=== PATIENT | female | born 1950 | race Caucasian/White ===

== ENCOUNTER 2021-03-14 08:37 | Inpatient (IN) | payer OTHER ==
[2021-03-14] VITALS (13 sets, daily range): BP systolic 80–152; BP diastolic 35–80
[~2021-03-14] VITALS: Ht 162.6 cm; Wt 98.8 kg
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
--- NOTE | ~2021-03-14 | HC ---
[facility] [place] [address] CONSULTATION Name: RAMONA AYALA Room #: 245-P ADM IN M.R.#: [id number] Admission: 03/14/21 Attend Phys: Brian Drummond MD Discharge: Date of : 50 Report #: [id number] THIS REPORT FOR: cc: Valdemar Coates MD, Christopher B. MD Khosla,Wallace Mason MD ~ DATE OF SERVICE: 03/17/2021 HISTORY OF PRESENT ILLNESS: This is a 70-year-old female patient, who is unable to provide any history at all. No family member is here. History is from the record and talking to the nurses. This patient apparently was in the rehab after admission at [facility]. She was found unresponsive with a very low blood sugar and agonal breathing. She was intubated and admitted. She is on fentanyl, but is not on any other sedation. The nurse tells me that she was given sedation vacation and she did not have any purposeful activity that time. REVIEW OF SYSTEMS: Positive for end-stage renal disease. She has a renal transplant, but has to go back on dialysis. She has respiratory failure. She has a pleural effusion. She had hypoglycemia. A question is whether the patient needs to be made comfort care or not. That is the relevant 14-point review of system, which was available. PAST MEDICAL HISTORY: Positive for kidney problem. FAMILY HISTORY: Unremarkable. SOCIAL HISTORY: She is in snf, but that is for a rehabilitation after her admission to [facility]. PHYSICAL EXAMINATION: The patient's examination is very limited. On my examination, the only response I get is that on painful stimuli, she opens her eyes. She does not move anything. She cannot follow any commands. Rest of the neurological examination is impossible. Blood pressure is stable now. Pulse is 97, last blood pressure was 116/74, temperature is 97.9. She is intubated. Records indicate that she may have atrial fibrillation. Her latest chest x-ray shows that she is also developing right pleural effusion. She is moderately built individual. Hearing and vision cannot be tested. LABORATORY DATA: Indicate somewhat decreased platelet count of 116. GFR is only 21. IMPRESSION: Encephalopathy because of numerous medical problems. Because of numerous medical problems and hypoglycemia and hypoxia she suffered, her prognosis does not look good. Family should consider palliative care not even if neurological function is there because of multisystem problems, but we will try to see how much neurological function is there. I will get an EEG done in [address] [address] CONSULTATION Name: RAMONA AYALA Room #: [facility] IN ..#: [id number] Admission: 03/14/21 Attend Phys: Brian Drummond MD Discharge: Date of : 50 Report #: [id number] this patient as a first test and then try to talk to the family. Thank you very much for this referral and if you have any questions, please feel free to contact me. By: [id number] [id number] Wallace Bryant MD /paul
--- NOTE | ~2021-03-14 | EEG ---
[facility] [place] [address] ELECTROENCEPHALOGRAM Name: RAMONA AYALA Room #: 245-P ADM IN M.R.#: [id number] Admission: 03/14/21 Attend Phys: Brian Drummond MD Discharge: Date of : 50 Report #: [id number] THIS REPORT FOR: //name// DATE OF SERVICE: 03/18/2021 This patient's EEG is being done to evaluate for encephalopathy. EEG was done by placing the electrode by standard 10-20 system of electrode placement. Both referential and sequential montages were used for recording. Background activity has a lot of muscle and electronic artifacts. It appeared very slow about 4-5 Hz and 30 microvolt. IMPRESSION: This is an EEG, which has a lot of artifacts. Therefore, no definite impression can be made, but EEG does appear to be showing findings consistent with significant amount of encephalopathy. Clinical correlation is recommended, but if further evaluation is desired, the patient should have a repeat EEG by giving her some paralyzing agents and without any sedation. By: 1144 1415 Wallace Bryant MD /nt
--- NOTE | 2021-03-14 08:37 | NUR ---
PLEASE SEE TRIAGE NOTE. THIS IS A RUNNING NOTE THIS RN REMAINING AT BEDSIDE WITH PT PT STATED TO BE FOUND DOWN UPON EMS ARRIVAL, UNKNOWN DOWNTTIME, PT HAS SKIN TEARS TO BLE, LUE WORSE THAN THE RIGHT, BLEEDING CONTROLLED, PT ALSO HAS VARIOUS STAGES OF BRUISING TO BLE. PT IS UNRESPONSIVE AND BAGGED UPON ARRIVAL. RT IN ROUTE FOR INTUBATION. PT BG 20 UPON ARRIVAL, AFTER AN AMP OF D50 PT BG 80. PT INTUBATED WITHOUT COMPLICATIONS PLEASE REFER TO AIRWAY FOR PLACEMENT MARKING, OG PLACED WITHOUT DIFFICULTY AGAIN REFER TO GI INTERVENTION FOR PLACEMENT, ET TUBE AND OG CONFIRMED VIA XRAY, NO ISAAC PLACED AT THIS TIME D/T CHRONIC ESRD ED PROVIDER VERBALIZED OK, PT EXTREMITIES COOL TO THE TOUCH AND HARD TO PICKUP O2 SATURATION WHEN READING ON A GOOD WAVEFORM PT IS IN THE 90'S, PT
--- NOTE | 2021-03-14 09:10 | NUR ---
NARCAN .4MG- 08:43 D50 1 AMP- 08:43 LR 1 LITER- 08:49 ETOMIDATE 12ML -08:51 SUCCS 10 ML- 08:52
[2021-03-14 09:24] LABS: ABSOLUTE NEUTROPHILS 4.4 thou/uL (1.4-8.2); BASOPHILS 0.8 % (0.0-2.0); EOSINOPHILS 0.3 % (0.0-3.0); HEMOGLOBIN 8.7 gm/dL (12.0-15.0); LYMPHOCYTES 10.9 % (24.0-44.0); MCH 28.8 pg (26.0-34.0); MCHC 32.4 g/dL (28.0-37.0); MCV 88.8 fL (80.0-100.0); MONOCYTES 3.9 % (1.0-8.0); PLATELET COUNT 94 thou/uL (150-400); POLYS 84.1 % (36.0-66.0); RBC 3.03 mil/uL (4.20-5.00); RDW 19.9 % (10.5-14.5); WBC 5.2 thou/uL (4.0-11.0)
[2021-03-14 09:33] LABS: BE(vivo) 3.8 mmol/L (-2 to +3); HCO3 27.8 mmol/L (22.0-26.0); PCO2 39.4 mmHg (35.0-45.0); pH 7.466 (7.360-7.450); sO2 69.2 % (92.0-98.0)
[2021-03-14 09:33] LABS: ANION GAP 4 mmol/L (7-16); BUN 45 mg/dL (7-18); CALCIUM 7.1 mg/dL (8.5-10.1); CHLORIDE 99 mmol/L (98-107); CO2 30 mmol/L (21-32); CREATININE 2.7 mg/dL (0.6-1.0); GLUCOSE 118 mg/dL (74-106); POTASSIUM 4.9 mmol/L (3.5-5.1); SODIUM 133 mmol/L (136-145)
[2021-03-14 09:43] LABS: ALBUMIN 1.6 g/dL (3.4-5.0); LIPASE 28 U/L (73-393); SGOT 32 U/L (15-37); SGPT 19 U/L (14-59); TOTAL BILIRUBIN 0.7 mg/dL (0.2-1.0); TOTAL PROTEIN 3.9 g/dL (6.4-8.2); TROPONIN-I <0.06 ng/mL (<0.06)
--- NOTE | 2021-03-14 10:50 | NUR ---
1050- THIS RN AND RT TOOK PT TO CT AT THIS TIME PT BACK TO ED ROOM 06 AT 1151- NO ACUTE CHANGES NOTED. THIS RN TO REMAINS WITH PT
--- NOTE | 2021-03-14 11:09 | EKG ---
[place] [address] [address] [facility] [place] [address] ELECTROCARDIOGRAM REPORT Name: RAMONA AYALA Room #: REG [facility]#: [id number] Admission: 03/14/21 Attend Phys: Discharge: Date of : 50 Report #: [id number] [facility] ED Test Date: 2021-03-14 Test Time: 08:48:41 Pat Name: RAMONA AYALA Department: Room: Gender: F Dental Laboratory Assistant: ADRIAN : 1950 Requested By: Yves Saenz Order Number: [id number] MD: Behzad Junior Measurements Intervals [place] Rate: 83 P: TX: QRS: -25 QRSD: 114 T: -8 QT: 409 QTc: 481 Interpretive Statements Atrial fibrillation Borderline intraventricular conduction delay Abnormal R-wave progression, early transition Borderline T abnormalities, diffuse leads Baseline wander in lead(s) V3 No previous ECG available for comparison Electronically Signed On 03-14-2021 11:08:52 CDT by Behzad Junior [email or web address] <ELECTRONICALLY SIGNED> By: Behzad Junior MD, MERGED WITH [facility] 03/14/21 1108 D: 07/847 7 Behzad Junior MD, FACC /EPI
--- NOTE | 2021-03-14 12:00 | NUR ---
IR PLACED TRIPLE LUMEN CENTRAL LINE TO LEFT JUGULAR. PT IV IN LAC INFILTRATED AND WAS PULLED, CATHETER INTACT. INITIATING PRESSOR, WILL TITRATE PER PT CONDITION AND VS. WILL CONTINUE TO CLOSELY MONITOR AT BEDSIDE
--- NOTE | 2021-03-14 12:20 | NUR ---
PT FAMILY AT BEDSIDE AT THIS TIME. ED PROVIDER HAS GONE OVER PT RESULTS AND STATUS OF CONDITION WITH PT AND SON. PT CONTINUES TO REMAIN HYPOTENSIVE DESPITE LEVOPHED BEING MAXED AT 30MCG/MIN. PT DOES NOT APPEAR TO BE IN ANY DISTRESS. PT COVERED WITH SOL HUGGER AND WARM BLANKETS. THIS RN TO CONTINUE TO STAY AT BEDSIDE AND CLOSELY MONITOR
--- NOTE | 2021-03-14 12:20 | NUR ---
PT PROPOFOL AND FENTANYL DRIP WERE STOPPED AT THIS TIME D/T EXTREME HYPOTENSION. PT HAS SLIGHT EYE MOVEMENT BUT NO APPARENT DISTRESS NOTED. WILL CONTINUE TO CLOSELY MONITOR AT BEDSIDE.
--- NOTE | 2021-03-14 12:25 | NUR ---
HOSPITALIST AT BEDSIDE SPEAKING WITH PT AND SON. PT BP WNL LEVOPHED TITRATED DOWN TO 25MCG/MIN
--- NOTE | 2021-03-14 13:00 | NUR ---
NO ACUTE CHANGES NOTED, WILL CONTINUE TO CLOSELY MONITOR. ALL QUESTIONS HAVE BEEN ANSWERED AND THIS TIME FOR FAMILY.
[2021-03-14 13:03] LABS: BE(vivo) -1.9 mmol/L (-2 to +3); HCO3 22.4 mmol/L (22.0-26.0); PO2 52.6 mmHg (80.0-100.0); pH 7.411 (7.360-7.450); sO2 87.8 % (92.0-98.0)
--- NOTE | 2021-03-14 14:35 | NUR ---
THORACENTESIS CONSENT WAS SIGNED BY SPOUSE, HOWEVER CONS OUTWEIGH THE PROS AT THIS TIME AND IT DOES NOT APPEAR THAT THERE IS A SIGNIFICANT AMOUNT OF FLUID FOR PROCEDURE. PT FAMILY UPDATED ON THIS, VERBALIZED UNDERSTANDING AT THIS TIME
--- NOTE | 2021-03-14 15:08 | NUR ---
PT SPOUSE AT BEDSIDE NOTES PT HAS NOT HAD ANY URINE OUTPUT IN X3 WEEKS SINCE RESEARCH "KILLED HER KIDNEY" PT SPOUSE UNSURE OF LAST DIALYSIS TX. ATTEMPTED TO CALL [facility] AND CANNOT GET THROUGH TO STAFF. WILL UPDATE DR. NGUYEN ON ORDERS TO PLACE ISAAC OR NOT
[2021-03-14 16:01] LABS: INR 1.44; PROTIME 15.4 Seconds (10.5-12.1)
--- NOTE | 2021-03-14 16:06 | NUR ---
NO ACUTE CHANGES, AT BEDSIDE, STILL AWAITING ROOM IN ICU, WILL CONTINUE TO CLOSELY MONITOR
[2021-03-14 16:13] LABS: APTT 102.1 Seconds (24.5-32.8)
--- NOTE | 2021-03-14 17:08 | NUR ---
NO ACUTE CHANGES NOTED, PT RESTING COMFORTABLY WITH NO DISTRESS NOTED, VSS ON VENT, PT OTHER SON AT BEDSIDE AND UPDATED AT THIS TIME. WILL CONTINUE TO CLOSELY MONITOR
--- NOTE | 2021-03-14 17:11 | NUR ---
70-year-old female with an extensive past medical history who presents to the emergency department by EMS after being found unresponsive with agonal respirations at [facility]. Upon arrival in the ED, EMS bagging patient with no purposeful movement. Patient was reportedly found on the floor by staff in the morning. Glucose undetectable by EMS, patient only has a right tibial IO is access is currently getting D10. After talking with patient's , states that she has a history of a kidney transplant 8 years ago however her kidney transplant failed earlier this year and patient is now on dialysis with a tunneled HD line. Per Jozef at [facility] the patient had been with them for less than 10 days and spouse has had great difficulty with the new restrictions on visiting. Jozef states the patient was at [facility] for one month prior to admitting to [facility]. Spouse has been trying to locate her closer to [place] and [facility] as of yet has been able to find an accepting facility given her medical complexity. She is also a patient of Dr. Crane and currently receive dialysis at [facility]. Per ED patient admitted to ICU status on a vent. Spouse is Juan Alberto Lambert [phone] or [phone]. CM will follow for discharge needs upon medical evaluation and plan of care has been established. CM will follow for discharge needs upon medical evaluation and plan of care has been established.
--- NOTE | 2021-03-14 17:20 | NUR ---
REPORT GIVEN TO BRANDEN BRADLEY AT THIS TIME. LOOKING FOR HOSPITAL BED TO AND WILL THEN TRANSPORT PT
--- NOTE | 2021-03-14 17:55 | NUR ---
PT TURNED AND CLEANED AT THIS TIME WITH X4 RN'S. SOFT BROWN STOOL NOTED, PT HAS X2 WOUND BANDAGES NOTED.
--- NOTE | 2021-03-14 17:57 | NUR ---
PROPOFOL TITRATED TO 10MCG/MIN/KG AND FENTANYL TITRATED TO 75MCG/HR AT THIS TIME PER DR. CÁRDENAS FOR BRONCHOSCOPY. RT AT BEDSIDE.
[2021-03-14 18:02] LABS: URINE BILIRUBIN 2+ (Negative); URINE BLOOD 1+ (Negative); URINE CLARITY SL CLOUDY; URINE COLOR YELLOW; URINE GLUCOSE-RANDOM* NEGATIVE (Negative); URINE KETONES TRACE (Negative); URINE NITRITE-REFLEX NEGATIVE (Negative); URINE PROTEIN (DIPSTICK) 2+ (Negative); URINE UROBILINOGEN 0.2 E.U./dl (0.2-1.0)
[2021-03-14 18:31] LABS: ICTOTEST (BILI CONFIRMATORY) Positive (Negative); URINE LEUKOCYTES-REFLEX 1+ (Negative)
[2021-03-14 18:35] LABS: SQUAMOUS 0-3 Few /LPF (0-3); URINE RBC 3-10 Few /HPF (NONE SEEN); URINE WBC-REFLEX >25 Many /HPF (0-5)
[2021-03-14 18:36] LABS: BACTERIA-REFLEX >30 Many /HPF (None Seen)
--- NOTE | 2021-03-14 18:37 | NUR ---
THIS RN AND RT TAKING PT TO ICU AT THIS TIME. PT IS STABLE FOR TRANSPORT.
--- NOTE | 2021-03-14 19:36 | NUR ---
PATIENT ARRIVES AT 1836 TO ICU WITH RT AND IRS AGENT. PATIENT SETTLED IN ROOM. PASSING ON CARE TO PATCHER WOOD WELDER RN.
[2021-03-15] VITALS (23 sets, daily range): BP systolic 80–170; BP diastolic 39–84
[2021-03-15] MEDS ORDERED: PROGRAF0.5 MG PO (01:21)
[2021-03-15] MEDS ORDERED: PERCOCET 5-3251 EACH PO (01:23)
[2021-03-15] MEDS ORDERED: PREDNISONE 10 M10 MG PO (01:26)
[2021-03-15] MEDS ORDERED: TORSEMIDE20 MG PO (01:27)
[2021-03-15] MEDS ORDERED: PROTONIX40 M2 PO (01:27)
[2021-03-15] MEDS ORDERED: TRICOR48 MG PO (01:28)
[2021-03-15] MEDS ORDERED: CARVEDILOL25 MG PO (01:29)
[2021-03-15] MEDS ORDERED: CALCITRIOL0.5 MCG PO (01:29)
[2021-03-15] MEDS ORDERED: COZAAR 25 MG TA25 M1 PO (01:31)
[2021-03-15] MEDS ORDERED: FOLIC ACID1 MG PO (01:32)
[2021-03-15] MEDS ORDERED: HEPARIN SO5000 UNIT/ SUBQ (01:34)
[2021-03-15] MEDS ORDERED: MYFORTIC360 MG PO (01:35)
[2021-03-15] MEDS ORDERED: LEVEMIR100 UNIT/2 SUBQ (01:36)
[2021-03-15] MEDS ORDERED: NORVASC5 MG PO (01:37)
[2021-03-15] MEDS ORDERED: VITAMIN C500 M2 PO (01:38)
[2021-03-15] MEDS ORDERED: ASA81BEC PO (01:38)
[2021-03-15] MEDS ORDERED: MIRALAX119 GM PO (01:39)
[2021-03-15] MEDS ORDERED: NORCO5 PO (01:40)
[2021-03-15] MEDS ORDERED: NEPHRO-VITE TA0.8 MG PO (01:40)
[2021-03-15 05:11] LABS: ABSOLUTE NEUTROPHILS 6.9 thou/uL (1.4-8.2); BASOPHILS 0.1 % (0.0-2.0); EOSINOPHILS 0.1 % (0.0-3.0); HEMATOCRIT 23.2 % (37.0-47.0); HEMOGLOBIN 7.8 gm/dL (12.0-15.0); LYMPHOCYTES 4.7 % (24.0-44.0); MCH 29.2 pg (26.0-34.0); MCHC 33.4 g/dL (28.0-37.0); MCV 87.4 fL (80.0-100.0); MONOCYTES 1.3 % (1.0-8.0); PLATELET COUNT 93 thou/uL (150-400); POLYS 93.8 % (36.0-66.0); RBC 2.66 mil/uL (4.20-5.00); RDW 19.6 % (10.5-14.5); WBC 7.4 thou/uL (4.0-11.0)
--- NOTE | 2021-03-15 05:22 | NUR ---
PT IS 7O Y/O FEMALE ADMITTED FROM ED WITH RESP FAILURE S/P INTUBATION.PT ON PROPOFOL AND FENTANYL FOR VENT MANAGEMENT.PT NONRESPONSIVE.HAS EYES OPEN,PUPILS REACTIVE TO LIGHT.NO PURPOSEFUL MVTS,AFIB ON OIL CHANGE TECHNICIAN.ON LEVOPHED ,TITRATION PER PARAMETERE.LUNGS SOUND CLEAR ON UPPER LOBES AND COARSE LOWER LOBES BILATERALLY.HAS ISAAC CATHETER,ANURIC 22 ESRD, ON HD.EDEMATOUS TO EXTREMITIES X4.HAS BLISTERS AND SKIN TEARS THAT WEEPS MODERATELY.NOTED WOUNDS TO LEFT HIP AND LOWER BACK PLUS ANAL AREA,SEE PICTURES IN THE CHART.IONA WITH WEEPING SKIN TEARS.WOUND CARE CONSULTED.LABS REVIEWED.ART LINE PLACED BY DR RUIZ AND .DR NGUYEN ROUNDED ON PT.DR BORGES NOTIFIED OF THE CONSULT AND WAS OKAY WITH PT UNDERGOING CT SCAN W/CONTRAST.ADMISSION ASSESSMENT COMPLETED .MED RECONCILLED PER CORRECTION RECORDS. CALLED AND UPDATED WITH PT STATUS.NO SIGNIFICANT CHANGES NOTED.WILL CONT WITH POC.
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
--- NOTE | 2021-03-15 10:27 | NUR ---
If pt not extubated in 24 hr, recommend start nepro at 35ml/hr. Defer any fluid needs to renal.
[2021-03-15 11:24] LABS: ALBUMIN 1.3 g/dL (3.4-5.0); CALCIUM 6.8 mg/dL (8.5-10.1); CREATININE 2.8 mg/dL (0.6-1.0); PHOSPHORUS 4.4 mg/dL (2.5-4.9)
--- NOTE | 2021-03-15 12:45 | NUR ---
WOUND CARE CONSULT; ROUNDING WITH DR TAHIR RADFORD AND BETTIE ATKINSON NP. THE PATIENT GONZALEZ S 3 SKIN TEARS TO THE LEFT UPPER EXT IN A CLUSTER. PRESSURE INJURIES TO THE SACRUM/COCCYX/KARI-RECTAL. -APPLIED XEROFORM GAUZE, COVERED WITH A BORDER FOAM TO THE SKIN TEARS OF THE UPPER EXT. -APPLIED A SACRAL FOAM TO THE COCCYX/SACRUM/KARI-RECTUM.
--- NOTE | 2021-03-15 13:08 | NUR ---
1308-PATIENTS SPOUSE, BILL, CALLED. NURSE UPDATED HIM ON PATIENT STATUS AND PLAN OF CARE. ALL QUESTIONS ANSWERED.
--- NOTE | 2021-03-15 15:06 | NUR ---
FAXED CLINICAL UPDATES AND NEGATIVE COVID RESULT (03/14/21) TO [facility]. WILL CONFIRM WITH ROGER/LIAISON THAT SHE RECEIVED. [facility] P [phone]; FAX [phone]
--- NOTE | 2021-03-15 17:05 | NUR ---
Patient not progressing towards plan of care as evidenced by continued need for ventilation, levophed, and sedation. Patient blood pressure labile, SBP 70's-180's with minimal levophed titration. Levophed was off for a bit today, then wound care rounded to assess patient wounds and layed her down, SBP decreased into the 70's, levophed restarted. Plan of care is to continue to monitor need for ventilation, pressors, and hemodynamics.
[2021-03-15 18:19] LABS: CALCIUM 7.1 mg/dL (8.5-10.1)
[2021-03-15 18:21] LABS: CREATININE 1.2 mg/dL (0.6-1.0); POTASSIUM 3.4 mmol/L (3.5-5.1)
--- NOTE | 2021-03-15 22:01 | NUR ---
This RN spoke to Juan Alberto, patients at 1945. Discussed patient status and plan of care. Questions answered.
[2021-03-16] VITALS (26 sets, daily range): BP systolic 95–145; BP diastolic 34–76
[2021-03-16 06:07] LABS: HEMOGLOBIN 6.9 gm/dL (12.0-15.0)
[2021-03-16 06:12] LABS: ABSOLUTE NEUTROPHILS 3.1 thou/uL (1.4-8.2); BASOPHILS 0.2 % (0.0-2.0); HEMATOCRIT 20.8 % (37.0-47.0); LYMPHOCYTES 9.9 % (24.0-44.0); MCH 29.3 pg (26.0-34.0); MCHC 33.2 g/dL (28.0-37.0); MCV 88.1 fL (80.0-100.0); MONOCYTES 3.7 % (1.0-8.0); PLATELET COUNT 100 thou/uL (150-400); POLYS 86.2 % (36.0-66.0); RBC 2.36 mil/uL (4.20-5.00); RDW 19.9 % (10.5-14.5); WBC 3.6 thou/uL (4.0-11.0)
--- NOTE | 2021-03-16 06:34 | NUR ---
This RN spoke to ASHLEY Monroy regarding patients hemoglobin of 6.9. No new orders received. Will continue to monitor.
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
--- NOTE | 2021-03-16 16:31 | NUR ---
0900HRS - PT'S AT BEDSIDE. WAS UPDATED AND INFORMED OF PT'S STATUS AND CONDITION.
[2021-03-16 18:08] LABS: POTASSIUM 3.7 mmol/L (3.5-5.1)
[2021-03-16 18:13] LABS: CREATININE 2.2 mg/dL (0.6-1.0)
[2021-03-17 01:33] VITALS: BP 137/47
[2021-03-17 04:15] LABS: HEMATOCRIT 25.1 % (37.0-47.0); HEMOGLOBIN 8.5 gm/dL (12.0-15.0); MCH 29.4 pg (26.0-34.0); MCHC 33.7 g/dL (28.0-37.0); MCV 87.4 fL (80.0-100.0); RBC 2.87 mil/uL (4.20-5.00); RDW 18.7 % (10.5-14.5); WBC 5.5 thou/uL (4.0-11.0)
[2021-03-17 04:27] LABS: CALCIUM 7.2 mg/dL (8.5-10.1); CREATININE 2.3 mg/dL (0.6-1.0); MAGNESIUM 1.5 mg/dL (1.8-2.4); POTASSIUM 3.6 mmol/L (3.5-5.1)
--- NOTE | 2021-03-17 05:19 | NUR ---
pt withdraws to pain and closes mouth to oral care, eyes remain slightly open, do not close to noxious stimuli, fentanyl gtt decreased, pt hr increased with increase in sbp up to 165. tolerating tf, weeping, edematous, pale.
[2021-03-17 05:34] VITALS: BP 126/52
[2021-03-17 09:34] VITALS: BP 113/56
--- NOTE | 2021-03-17 12:29 | NUR ---
1200HRS - DIALYSIS (HD) COMPLETED
[2021-03-17 13:33] VITALS: BP 116/74
--- NOTE | 2021-03-17 16:27 | NUR ---
Discussed during am unite rounds and los. Cont. to wear face mask and shield during rounds. She on vent, tube feed for nutritional support. Wean trials. Will cont. following as needed for dc needs.
[2021-03-17 17:33] VITALS: BP 126/82
--- NOTE | 2021-03-17 18:21 | NUR ---
1820HRS - BMX1 LARGE,
--- NOTE | 2021-03-17 19:57 | NUR ---
0945HRS - PT'S AT BEDSIDE.
[2021-03-18 04:19] LABS: HEMATOCRIT 27.7 % (37.0-47.0); HEMOGLOBIN 9.3 gm/dL (12.0-15.0); MCH 29.4 pg (26.0-34.0); MCHC 33.6 g/dL (28.0-37.0); MCV 87.4 fL (80.0-100.0); RBC 3.17 mil/uL (4.20-5.00); RDW 19.2 % (10.5-14.5); WBC 7.1 thou/uL (4.0-11.0)
[2021-03-18 04:36] LABS: CALCIUM 7.2 mg/dL (8.5-10.1); CREATININE 1.8 mg/dL (0.6-1.0); MAGNESIUM 1.6 mg/dL (1.8-2.4); POTASSIUM 3.4 mmol/L (3.5-5.1)
[2021-03-18 05:07] LABS: HEPATITIS B SURFACE AG Negative (Negative)
[2021-03-18 13:27] LABS: BE(vivo) 1.6 mmol/L (-2 to +3); HCO3 24.7 mmol/L (22.0-26.0); PCO2 33.2 mmHg (35.0-45.0); pH 7.489 (7.360-7.450); sO2 97.5 % (92.0-98.0)
--- NOTE | 2021-03-18 15:16 | NUR ---
PT INTUBATED AND SEDATED. GCS-3, MTN AWARE OF THE PT. VENT SETTINGS TITRATED BY RT. CT HEAD TODAY, EEG AT BEDSIDE. PLAN FOR HD TOMORROW. MAGNESSIUM AND POTASSIUM REPLACED PER [facility]. PT AFEBRILE, OLIGURIC (PROVIDERS AWARE), TOLERATING TUBE FEED, FMS IN PLACE WITH LIQUID STOOL. PT AND AT BEDSIDE HAVE BEEN THOUROUGHLY UPDATED AND EDUCATED ON PT CONDITION AND POC. PT NOT PROGRESSING TOWARDS POC.
[2021-03-18 21:07] VITALS: BP 138/78
[2021-03-19] VITALS (10 sets, daily range): BP systolic 123–172; BP diastolic 49–90
[2021-03-19 05:49] LABS: HEMATOCRIT 26.6 % (37.0-47.0); HEMOGLOBIN 8.9 gm/dL (12.0-15.0); MCH 29.1 pg (26.0-34.0); MCHC 33.3 g/dL (28.0-37.0); MCV 87.4 fL (80.0-100.0); RBC 3.04 mil/uL (4.20-5.00); RDW 19.3 % (10.5-14.5); WBC 6.3 thou/uL (4.0-11.0)
--- NOTE | 2021-03-19 06:00 | NUR ---
REMAINS INTUBATED AND SEDATED WITH FENTANYL GTT FOLLOWS NO COMMANDS REMAINS IN AFIB AND A DNR. 80 CC UO THIS SHIFT. AND 500 CC FROM FMS. NOT PROGRESSING TOWARD GOALS.
[2021-03-19 06:40] LABS: CALCIUM 7.3 mg/dL (8.5-10.1); CREATININE 2.1 mg/dL (0.6-1.0); MAGNESIUM 1.9 mg/dL (1.8-2.4); POTASSIUM 3.5 mmol/L (3.5-5.1)
[2021-03-19 09:12] LABS: BE(vivo) -0.3 mmol/L (-2 to +3); HCO3 22.8 mmol/L (22.0-26.0); pH 7.471 (7.360-7.450); sO2 95.8 % (92.0-98.0)
--- NOTE | 2021-03-19 15:55 | NUR ---
PT INTUBATED AND SEDATED. FMS IN PLACE WITH LIQUID STOOL. PT AFEBRILE, OLIGURIC(PROVIDER AWARE), TOLERATING TUBE FEEDING. PLAN IS TO DO A TERMINAL WEAN FROM THE VENTILATOR TODAY. FAMILY HAS BEEN EDUCATED BY RN AND PROVIDERS, IS AT BEDSIDE. PT NOT PROGRESSING TOWARDS POC. RIGHT RADIAL ART LINE DC'D. PT AND FAMILY HAVE BEEN THOUROUGHLY UPDATED AND EDUCATED ON PT CONDITION AND POC. PT NOT PROGRESSING TOWARDS POC.
[2021-03-20] VITALS (12 sets, daily range): BP systolic 100–137; BP diastolic 49–68
--- NOTE | 2021-03-20 06:00 | NUR ---
PT REMAINS ON COMFORT CARE NO OXYGEN O2 SAT 60 TO 70 SBP 100/60 REMAINS IN AFIB. BATHED WILL BE IN THIS AM. HE STATES SHE IS SO STRONG SHE WILL BE HERE ANOTHER 3 OR 4 DAYS. WILL CONT TO MONITOR.
--- NOTE | 2021-03-20 08:02 | HC ---
[facility] [place] [address] CONSULTATION Name: RAMONA AYALA Room #: 245-P ADM IN M.R.#: [id number] Admission: 03/14/21 Attend Phys: Brian Drummond MD Discharge: Date of : 50 Report #: [id number] THIS REPORT FOR: cc: Valdemar Coates MD, Christopher B. MD Althoff, Jeffrey R. MD ~ DATE OF SERVICE: 03/15/2021 CHIEF COMPLAINT: Multiple pressure ulcerations. HISTORY OF PRESENT ILLNESS: This is a 70-year-old female patient who is admitted to the hospital in the last 24 hours. She has a history of type 2 diabetes mellitus with a failed kidney transplant and end-stage renal disease. She is currently in ICU and intubated. She had been recently at [facility] for a "liver infection" and then was in rehab and became unresponsive, apparently found on the floor with agonal breathing, blood glucoses in the low 20s, downtime is unknown. She is intubated in ICU receiving critical care intervention. I have been asked to see her with regard to wound care. The patient can provide no information about herself. CURRENT MEDICATIONS: Include Prograf, Percocet, prednisone, torsemide, Protonix, TriCor, calcitriol, Coreg, Cozaar, Myfortic, Norvasc, Levemir, vitamin C, aspirin, MiraLax, and hydrocodone. ALLERGIES: CODEINE. PAST MEDICAL HISTORY: Type 2 diabetes mellitus, anemia, previous , hepatitis C, left knee surgery, renal insufficiency, hypertension, previous hysterectomy, pulmonary edema, renal failure, and hypothyroidism. SOCIAL HISTORY: Negative for tobacco use. FAMILY HISTORY: Unknown. REVIEW OF SYSTEMS: Unobtainable due to the patient's unresponsive state. PHYSICAL EXAMINATION: VITAL SIGNS: Include temperature 36.8, pulse 118, respiratory rate of 19, and blood pressure 100/45. GENERAL: This is a chronically ill-appearing female patient who is not responsive, on a respirator. HEENT: Head is normocephalic. Nose and throat demonstrate oral intubation. NECK: Supple. LUNGS: Diminished. HEART: Irregular. ABDOMEN: Soft. [facility] [address] [place] [address] CONSULTATION Name: RAMONA AYALA Room #: 245-P [facility] IN ..#: [id number] Admission: 03/14/21 Attend Phys: Brian Drummond MD Discharge: Date of : 50 Report #: [id number] SKIN: Examination of the skin in the lower extremities demonstrate what appears to be a deep tissue injury to her left heel. She has a stage 3 pressure ulceration to the coccyx x2 and a stage 3 pressure ulceration to the low back. Both areas have a mixed granulation, fibrin are relatively superficial. She has multiple skin tears to the left upper arm. Additionally, she has an unstageable pressure ulceration to the left hip covered with moderate fibrin and a little bit of eschar. LABORATORY DATA: Include sodium 130, potassium 5.0, chloride 99, CO2 22, BUN 45, creatinine 2.8, glucose 250. Albumin is 1.3. INR is 1.4. White blood cell count 7.4 with a hemoglobin of 7.8. CLINICAL IMPRESSION: 1. Respiratory failure requiring mechanical ventilation. 2. End-stage renal disease, on dialysis. 3. History of hypoglycemia. 4. Recent decompensation having been found down with hypoglycemia. 5. Deep tissue injury to the left heel. 6. Stage 3 pressure ulceration x2 to the sacrococcygeal region. 7. Stage 3 pressure ulcer in the low back. 8. Unstageable pressure ulcer in the left hip. 9. Skin tears to the left upper arm. 10. Diabetes mellitus. RECOMMENDATIONS: At this point in time, the patient will be placed on low air loss mattress with q. 2 hour turning and repositioning. She will need nutritional support when appropriate. Obviously, aggressive management of her underlying medical issues. Recommend Xeroform and Kerlix to the skin tears to the left upper arm, Betadine paint "to the left heel", PRAFO boots at all times. We will pack the sacral ulcer with Aquacel Ag, covered with a bordered foam to be changed daily. Same treatment for the coccyx pressure ulcer. We recommend bordered foam to be changed daily to the T-spine pressure ulceration and bordered foam to the left hip. I appreciate being asked to see her in consultation. <ELECTRONICALLY SIGNED> By: Mohsen Marroquin MD 03/20/2102 58 Mohsen Marroquin MD /nt
--- NOTE | 2021-03-20 10:02 | NUR ---
Chart review. Changed to comfort care. coming in today. will cont following as needed for support.
--- NOTE | 2021-03-20 14:38 | NUR ---
PATIENT'S TIME OF IS 1417 TODAY. PRONOUNCED BY TWO NURSES GIVEN ORDER BY . BILL AT BEDSIDE WHEN PATIENT WAS ACTIVELY DYING.PT DID NOT HAVE BELONGINGS. ALL CONSULTS WERE NOTIFIED.
== END 2021-03-20 14:17 | DRG 870 ==
LOC: ER 08:37 → EROBS 12:26 → ICU 12:26
PROVIDERS: Internal Medicine Nephrology; Pediatrics; Psychiatry & Neurology Neuromuscular Medicine; Student in an Organized Health Care Education/Training Program; ADMIT Internal Medicine; ATTEND Internal Medicine
PROC: 0BH17EZ Insertion of Endotracheal Airway into Trachea, Via Natural or Artificial Opening (ICD-10-PCS; principal; 2021-03-14)
PROC: 5A1955Z Respiratory Ventilation, Greater than 96 Consecutive Hours (ICD-10-PCS; principal; 2021-03-14)
PROC: 02HV33Z Insertion of Infusion Device into Superior Vena Cava, Percutaneous Approach (ICD-10-PCS; 2021-03-14)
PROC: B548ZZA Ultrasonography of Superior Vena Cava, Guidance (ICD-10-PCS; 2021-03-14)
PROC: 4A133B1 Monitoring of Arterial Pressure, Peripheral, Percutaneous Approach (ICD-10-PCS; 2021-03-14)
PROC: 4A133J1 Monitoring of Arterial Pulse, Peripheral, Percutaneous Approach (ICD-10-PCS; 2021-03-14)
PROC: 03HY32Z Insertion of Monitoring Device into Upper Artery, Percutaneous Approach (ICD-10-PCS; 2021-03-14)
PROC: 0B9J8ZX Drainage of Left Lower Lung Lobe, Via Natural or Artificial Opening Endoscopic, Diagnostic (ICD-10-PCS; 2021-03-15)
PROC: 5A1D70Z Performance of Urinary Filtration, Intermittent, Less than 6 Hours Per Day (ICD-10-PCS; 2021-03-15)
PROC: 30233N1 Transfusion of Nonautologous Red Blood Cells into Peripheral Vein, Percutaneous Approach (ICD-10-PCS; 2021-03-16)
PROC: 5A1D70Z Performance of Urinary Filtration, Intermittent, Less than 6 Hours Per Day (ICD-10-PCS; 2021-03-17)
PROC: 5A1D70Z Performance of Urinary Filtration, Intermittent, Less than 6 Hours Per Day (ICD-10-PCS; 2021-03-20)
DX: A41.9 Sepsis, unspecified organism (principal); L89.153 Pressure ulcer of sacral region, stage 3; L89.103 Pressure ulcer of unspecified part of back, stage 3; J69.0 Pneumonitis due to inhalation of food and vomit; J96.01 Acute respiratory failure with hypoxia; N18.6 End stage renal disease; E43 Unspecified severe protein-calorie malnutrition; R65.21 Severe sepsis with septic shock; K75.0 Abscess of liver; I12.0 Hypertensive chronic kidney disease with stage 5 chronic kidney disease or end stage renal disease; T86.12 Kidney transplant failure; G93.40 Encephalopathy, unspecified; J90 Pleural effusion, not elsewhere classified; N17.9 Acute kidney failure, unspecified; E03.9 Hypothyroidism, unspecified; E11.22 Type 2 diabetes mellitus with diabetic chronic kidney disease; L89.626 Pressure-induced deep tissue damage of left heel; L89.220 Pressure ulcer of left hip, unstageable; S41.112A Laceration without foreign body of left upper arm, initial encounter; W19.XXXA Unspecified fall, initial encounter; K21.9 Gastro-esophageal reflux disease without esophagitis; D69.6 Thrombocytopenia, unspecified; R53.81 Other malaise; Y83.8 Other surgical procedures as the cause of abnormal reaction of the patient, or of later complication, without mention of misadventure at the time of the procedure; I51.3 Intracardiac thrombosis, not elsewhere classified; E11.649 Type 2 diabetes mellitus with hypoglycemia without coma; D63.8 Anemia in other chronic diseases classified elsewhere; Z51.5 Encounter for palliative care; Z98.891 History of uterine scar from previous surgery; Z90.710 Acquired absence of both cervix and uterus; Y93.89 Activity, other specified; Y92.89 Other specified places as the place of occurrence of the external cause; Y99.8 Other external cause status; Z68.37 Body mass index [BMI] 37.0-37.9, adult; Z98.42 Cataract extraction status, left eye; Z98.41 Cataract extraction status, right eye; Z88.5 Allergy status to narcotic agent; Z20.822 Contact with and (suspected) exposure to COVID-19
CPT/HCPCS: 10078; 32100; 85026; 85076